=== PATIENT | male | born 1975 | race Caucasian/White ===

== ENCOUNTER 2019-01-09 09:17 | Emergency (ER) | payer OTHER ==
[2019-01-09] MEDS ORDERED: cefTRIAXone 2 GM, Lidocaine 1% 4.2 ML IM ONE ×2 (09:38)
--- NOTE | 2019-01-09 09:54 | EDM.PDOC ---
ED HPI GENERAL MEDICAL PROBLEM - General Chief Complaint: General Stated Complaint: LT FACIAL SWELLING Time Seen by Provider: 01/09/19 09:32 Source of Information: Reports: Patient History Limitations: Reports: No Limitations - History of Present Illness INITIAL COMMENTS - FREE TEXT/NARRATIVE: Patient presents with complaints of left sided facial pain and tenderness, redness, history of right sided mastoiditis requiring four days of hospitalization with IV antibiotics in September of 2018. Denies fever, chills, night sweats. 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 Will be there Sunday. Denies chest pain, sob, abdominal pain, diarrhea, blood in urine or stools. He has left sided maxillary tenderness that radiates to his forehead. No pain in the mastoid area. Onset: Gradual Onset Date: 01/08/19 Duration: Getting Worse Location: Reports: Face Quality: Reports: Sharp Severity: Moderate Improves with: Reports: None ED ROS ENT - Review of Systems Review Of Systems: See Below Constitutional: Reports: No Symptoms HEENT: Reports: Other (facial pain) Respiratory: Reports: No Symptoms Cardiovascular: Reports: No Symptoms Endocrine: Reports: No Symptoms GI/Abdominal: Reports: No Symptoms : Reports: No Symptoms Musculoskeletal: Reports: No Symptoms Skin: Reports: No Symptoms Neurological: Reports: No Symptoms Psychiatric: Reports: No Symptoms Hematologic/Lymphatic: Reports: No Symptoms Immunologic: Reports: No Symptoms ED EXAM, ENT - Physical Exam Exam: See Below Exam Limited By: No Limitations General Appearance: Alert, WD/WN, No Apparent Distress Eye Exam: Bilateral Eye: EOMI, Normal Inspection, PERRL Ears: Normal TMs Nose: Normal Inspection, Normal Mucousa, No Blood Mouth/Throat: Normal Inspection, Normal Gums, Normal Lips, Normal Oropharynx, Normal Teeth Head: Facial Swelling, Facial Tenderness, Sinus Tenderness (left maxillary area tender to palpation with mild erythema) Neck: Normal Inspection, Supple, Non-Tender, Full Range of Motion Respiratory/Chest: No Respiratory Distress, Lungs Clear, Normal Breath Sounds, No Accessory Muscle Use, Chest Non-Tender Cardiovascular: Normal Peripheral Pulses, Regular Rate, Rhythm, No Edema, No Gallop, No JVD, No Murmur, No Rub GI/Abdominal: Normal Bowel Sounds, Soft, Non-Tender, No Organomegaly, No Distention, No Abnormal Bruit, No Mass Neurological: Alert, Oriented, CN II-XII Intact, Normal Cognition, Normal Gait, Normal Reflexes, No Motor/Sensory Deficits Psychiatric: Normal Affect, Normal Mood Skin: Warm, Dry, Intact, Erythema (to left maxillary area) Lymphatic: No Adenopathy Course - Orders/Labs/Meds Orders: Active Orders 24 hr Category Date Time Status cefTRIAXone 2 GM,Lidocaine 1% 4.2 ML Med 01/09/19 09:38 Ordered cefTRIAXone [Rocephin] 2 gm Lidocaine 1% [Xylocaine-MPF 1%] 4.2 ml IM ONETIME Departure - Departure Time of Disposition: 10:28 Disposition: Home, Self-Care 01 Condition: Good Clinical Impression: Maxillary sinusitis, acute - Discharge Information *PRESCRIPTION DRUG MONITORING PROGRAM REVIEWED*: Not Applicable *COPY OF PRESCRIPTION DRUG MONITORING REPORT IN PATIENT HENNY: Not Applicable Instructions: Sinusitis, Adult, [id number], How to Perform a Sinus Rinse, [id number], Amoxicillin; Clavulanic Acid tablets, Probiotics Forms: ED Department Discharge Additional Instructions: Plan 1. Stay well hydrated 2. Take the augmentin as prescribed. Normal sinusitis treatment does not include antibiotics, but with your history I did think it advisable to start empirically. 3. Use a sinus rinse with distilled water, not tap water. 4. May also use a nasal spray like flonase to reduce inflammation of the mucous membrane. 5. Follow up immediately if your symptoms worsen, you develop fever, or chills. 6. Make sure to take a probiotic or eat 1-2 servings of yogurt daily to prevent a bacterial infection of the gut caused by taking antibiotics. 7. You can call the ER in [place] with any questions or concerns. - Problem List & Annotations (1) Maxillary sinusitis, acute SNOMED Code(s): 73503902 Code(s): J01.00 - ACUTE MAXILLARY SINUSITIS, UNSPECIFIED Status: Acute Priority: Medium Qualifiers: Recurrence: recurrent Qualified Code(s): J01.01 - Acute recurrent maxillary sinusitis - Problem List Review Problem List Initiated/Reviewed/Updated: Yes - My Orders Last 24 Hours: My Active Orders 01/09/19 09:38 cefTRIAXone 2 GM,Lidocaine 1% 4.2 ML cefTRIAXone [Rocephin] 2 gm Lidocaine 1% [ Xylocaine-MPF 1%] 4.2 ml IM ONETIME - Assessment/Plan Last 24 Hours: My Active Orders 01/09/19 09:38 cefTRIAXone 2 GM,Lidocaine 1% 4.2 ML cefTRIAXone [Rocephin] 2 gm Lidocaine 1% [ Xylocaine-MPF 1%] 4.2 ml IM ONETIME Assessment:: Maxillary sinusitis Plan: Plan 1. Stay well hydrated 2. Take the augmentin as prescribed. Normal sinusitis treatment does not include antibiotics, but with your history I did think it advisable to start empirically. 3. Use a sinus rinse with distilled water, not tap water. 4. May also use a nasal spray like flonase to reduce inflammation of the mucous membrane. 5. Follow up immediately if your symptoms worsen, you develop fever, or chills. 6. Make sure to take a probiotic or eat 1-2 servings of yogurt daily to prevent a bacterial infection of the gut caused by taking antibiotics. 7. You can call the ER in [place] with any questions or concerns.
== END 2019-01-09 10:28 | disposition home or self-care (01) ==
LOC: VM.ED 09:17
DX: J01.00 Acute maxillary sinusitis, unspecified (principal)
CPT/HCPCS: 36415; 85025; 86140; 99283; J0696; J2001